=== PATIENT | male | born 2000 | race Hispanic/Latino ===

== ENCOUNTER 2025-01-29 22:07 | Emergency (ER) | payer SELFPAY, OTHER ==
[2025-01-29] MEDS ORDERED: Lidocaine 1% PF 5 ML VIAL ONE (22:50)
[2025-01-29] MEDS ORDERED: Ketorolac Tromethamine 30 MG (1 mL) VIAL ONE (23:59)
[2025-01-30] MEDS ORDERED: Oxymetazoline HCl 0.05% (30 ML BOT) ONE
[2025-01-30] MEDS ORDERED: Ondansetron PF 4 MG/2 ML Vial ONE (00:19)
== END 2025-01-30 01:37 | disposition home or self-care (01) ==
LOC: EDSEX 22:07 → ERS 22:07
DX: S02.2XXA Fracture of nasal bones, initial encounter for closed fracture (principal); S01.81XA Laceration without foreign body of other part of head, initial encounter; V89.0XXA Person injured in unspecified motor-vehicle accident, nontraffic, initial encounter
CPT/HCPCS: 12014; 70450; 70486; 71045; 72125; G0390; J1885; J2405

== ENCOUNTER 2025-02-04 08:22 | Emergency (ER) | payer OTHER, SELFPAY | END 2025-02-04 09:08 | disposition home or self-care (01) | LOC: ERS 08:22 | DX: S01.511D Laceration without foreign body of lip, subsequent encounter (principal); S01.81XD Laceration without foreign body of other part of head, subsequent encounter; F17.210 Nicotine dependence, cigarettes, uncomplicated; V89.2XXD Person injured in unspecified motor-vehicle accident, traffic, subsequent encounter ==